=== PATIENT | male | born 1970 | race Caucasian/White ===

== ENCOUNTER 2019-07-15 19:08 | Inpatient (IN) | payer OTHER ==
[~2019-07-15] VITALS: Ht 170.2 cm; Wt 123.7 kg
[2019-07-15 19:30] LABS: Calcium, Ionized (POC) 1.06 mmol/L (1.10-1.46); Chloride (POC) 102 mmol/L (98-108); Creatinine (POC) 1.1 mg/dL (0.8-1.3); Glucose (ISTAT POC) 170 mg/dL (70-99); Hemoglobin (POC) 15.3 g/dL (13.5-17.5); Potassium (POC) 3.6 mmol/L (3.5-5.5); Sodium (POC) 136 mmol/L (135-148); Total CO2 (POC) 24 mmol/L (21-32)
[2019-07-15 19:33] LABS: BASOPHILS ABSOLUTE AUTO 0.04 K/mm3 (0.00-0.23); BASOPHILS PERCENT AUTO 0 % (0-2); EOSINOPHILS ABSOLUTE AUTO 0.14 K/mm3 (0.00-0.68); EOSINOPHILS PERCENT AUTO 1 % (0-6); Hematocrit 44.3 % (37.0-53.0); Hemoglobin 15.2 g/dL (13.5-17.5); IMMATURE GRAN ABSOLUTE AUTO 0.03 K/mm3 (0.00-0.10); IMMATURE GRAN PERCENT AUTO 0 % (0-1); LYMPHOCYTES ABSOLUTE AUTO 1.45 K/mm3 (0.84-5.20); LYMPHOCYTES PERCENT AUTO 13 % (21-46); MONOCYTES ABSOLUTE AUTO 0.72 K/mm3 (0.16-1.47); MONOCYTES PERCENT AUTO 7 % (4-13); Mean Corpuscular HGB 29.5 pg (26.0-34.0); Mean Corpuscular HGB Conc 34.3 g/dL (31.5-36.5); Mean Corpuscular Volume 86 fL (80-100); Mean Platelet Volume 9.2 fL (9.1-12.4); NEUTROPHILS ABSOLUTE AUTO 8.46 K/mm3 (1.96-9.15); NEUTROPHILS PERCENT AUTO 78 % (41-73); Platelet Count 240 K/mm3 (150-400); RDW Coefficient Variation 12.5 % (11.7-14.2); RDW Standard Deviation 38.9 fL (35.1-46.3); Red Blood Cell Count 5.16 M/mm3 (4.30-5.90); White Blood Cell Count 10.84 K/mm3 (4.00-11.30)
[2019-07-15] MEDS ORDERED: LISI5 PO (19:40)
[2019-07-15] MEDS ORDERED: METF500 PO (19:41)
[2019-07-15] MEDS ORDERED: HYDR10 (19:41)
[2019-07-15 19:48] LABS: International Normalized Ratio 1.05; Prothrombin Time Results 11.1 Sec (9.7-11.5)
[2019-07-15 19:56] LABS: Alanine Aminotransfer (ALT/SGP 137 U/L (12-78); Albumin, Blood 3.8 g/dL (3.4-5.0); Alk Phos 68 U/L (50-136); Anion Gap 9 mmol/L (6-16); Aspartate Aminotrans (AST/SGOT 126 U/L (12-37); Bilirubin, Total 1.1 mg/dL (0.1-1.0); Blood Urea Nitrogen 21 mg/dL (8-24); Bun/Creatinine Ratio 19.6 (12.0-20.0); CO2, Blood 23 mmol/L (21-32); Chloride, Blood 105 mmol/L (98-108); Creatinine, Blood 1.07 mg/dL (0.60-1.20); Glomerular Filtration Rate >60 (60-); Glucose, Blood 165 mg/dL (70-99); Potassium, Blood 3.6 mmol/L (3.5-5.5); Sodium, Blood 137 mmol/L (136-145); Total Protein, Blood 7.8 g/dL (6.4-8.2); Troponin I <0.015 ng/mL (0.000-0.040)
[2019-07-15] MEDS ORDERED: HYDCHL25 PO (23:14)
[2019-07-16 03:36] LABS: BASOPHILS ABSOLUTE AUTO 0.03 K/mm3 (0.00-0.23); BASOPHILS PERCENT AUTO 0 % (0-2); EOSINOPHILS ABSOLUTE AUTO 0.04 K/mm3 (0.00-0.68); EOSINOPHILS PERCENT AUTO 1 % (0-6); Hematocrit 42.3 % (37.0-53.0); Hemoglobin 14.3 g/dL (13.5-17.5); IMMATURE GRAN ABSOLUTE AUTO 0.02 K/mm3 (0.00-0.10); IMMATURE GRAN PERCENT AUTO 0 % (0-1); LYMPHOCYTES ABSOLUTE AUTO 0.96 K/mm3 (0.84-5.20); LYMPHOCYTES PERCENT AUTO 13 % (21-46); MONOCYTES ABSOLUTE AUTO 0.56 K/mm3 (0.16-1.47); MONOCYTES PERCENT AUTO 8 % (4-13); Mean Corpuscular HGB 30.2 pg (26.0-34.0); Mean Corpuscular HGB Conc 33.8 g/dL (31.5-36.5); Mean Corpuscular Volume 89 fL (80-100); Mean Platelet Volume 9.4 fL (9.1-12.4); NEUTROPHILS ABSOLUTE AUTO 5.88 K/mm3 (1.96-9.15); NEUTROPHILS PERCENT AUTO 79 % (41-73); Platelet Count 186 K/mm3 (150-400); RDW Coefficient Variation 12.6 % (11.7-14.2); RDW Standard Deviation 41.6 fL (35.1-46.3); Red Blood Cell Count 4.74 M/mm3 (4.30-5.90); White Blood Cell Count 7.49 K/mm3 (4.00-11.30)
[2019-07-16 03:54] LABS: Alanine Aminotransfer (ALT/SGP 189 U/L (12-78); Albumin, Blood 3.5 g/dL (3.4-5.0); Albumin/Globulin Ratio 0.9 (0.8-1.8); Alk Phos 71 U/L (50-136); Anion Gap 6 mmol/L (6-16); Aspartate Aminotrans (AST/SGOT 140 U/L (12-37); Bilirubin, Total 0.8 mg/dL (0.1-1.0); Blood Urea Nitrogen 19 mg/dL (8-24); Bun/Creatinine Ratio 17.9 (12.0-20.0); CO2, Blood 29 mmol/L (21-32); Calcium, Blood 8.3 mg/dL (8.5-10.1); Chloride, Blood 103 mmol/L (98-108); Creatinine, Blood 1.06 mg/dL (0.60-1.20); Globulin, Blood 4.1 g/dL (2.2-4.0); Glomerular Filtration Rate >60 (60-); Glucose, Blood 119 mg/dL (70-99); Potassium, Blood 4.1 mmol/L (3.5-5.5); Sodium, Blood 138 mmol/L (136-145); Total Protein, Blood 7.6 g/dL (6.4-8.2)
--- NOTE | 2019-07-16 05:12 | NUR ---
SHIFT SUMMARY PT NEW ED ADMIT THIS EVENING. COMPLAINING OF UPPER EPIGASTRIC PAIN THAT RADIATED INTO HIS BACK. PT ALSO HAVING SOME INTERMITTENT NAUSEA. NO EPISODES OF VOMITING SINCE ADMISSION. PT REPORTS THAT THROUGHOUT THE NIGHT THE FEELING OF TIGHTNESS IN HIS UPPER EPIGASTRIC HAS IMPROVED BUT THE PAIN REMAINS. MEDICATED X 2 W/ 2 MG IV DILAUDID, X 1 W/ 4 MG ZOFRAN, AND X 1 W/ 25 MG PHENERGAN. TELEMETRY ON AND READING SINUS RHYTHM IN THE 60'S THROUGHOUT THE NIGHT. PT AMBULATED WELL INDEPENDENTLY IN THE ROOM. DENIES SOB. DOES REPORT SOME RECENT HARD STOOL. AT BEDSIDE THROUGHOUT THE NIGHT. VITAL SIGNS STABLE. CPAP ON AT [facility]. WILL CONTINUE TO MONITOR.
--- NOTE | 2019-07-16 17:29 | NUR ---
SHIFT SUMMARY PT HAD FIRST PART OF STRESS TEST DONE THIS SHIFT. 2ND PART TO BE DONE TOMORROW AT [facility] PER NUCLEAR MED. PT CONTINUES TO COMPLAIN OF PAIN IN EPIGASTRIC AREA BUT REPORTS HE DOES NOT HAVE THE PRESSURE IN HIS BACK OR IN THE EPIGASTRIC AREA LIKE HE DID LAST NIGHT. PT ALSO REPORTS PAIN WORSENED WHEN TAKING A SHOWER. NO NAUSEA SINCE THIS AM. PT TOLERATING REGULAR FOOD. ZOFRAN ADMINISTERED BEFORE PAIN MEDICATION DUE TO PT REPORTS IT CAUSES HIM TO FEEL NAUSEOUS AFTER. IVF INFUSING WITHOUT DIFFICULTY. NO ACUTE CHANGES THIS SHIFT. PT UP INDEPENDENTLY IN ROOM. WILL CONTINUE TO MONITOR AND REPORT TO NOC RN. CALL LIGHT IN REACH.
--- NOTE | 2019-07-17 06:15 | NUR ---
SHIFT SUMMARY PT CONTINUES TO HAVE UPPER EPIGASTRIC PAIN THAT RADIATES TO HIS BACK. PT DOES REPORT THAT PAIN HAS IMPROVED SOME AND TIGHTNESS THAT PT HAD ON ADMISSION IS GONE. PT HAD SOME NAUSEA AT BETIME, MEDICATED W/ PHENERGAN AND PT SLEPT AND WHEN AWAKE DENIED ANY FURTHER NAUSEA THE REMAINDER OF THE NIGHT. ALSO MEDICATED W/ 1 MG DILAUDID X 1 FOR ABD PAIN. PT SLEPT MUCH BETTER THIS EVENING. HEADACHE REPORTED BOTH BEFORE BEDTIME AND WHEN WAKING THIS AM. MEDICATED X 2 W/ 650 MG TYLENOL. PT TO HAVE 2ND PART OF STRESS TEST TODAY. AND DOG AT BEDSIDE. VITAL SIGNS STABLE. TELEMETRY READING SR 89 THIS EVENING. NO ACUTE CHANGES THIS SHIFT.
--- NOTE | 2019-07-17 17:09 | NUR ---
PT ALERT AND ORIENTED THROUGHOUT THIS SHIFT. PT'S IN THE ROOM THROUGHOUT THIS SHIFT. PT NPO AFTER BREAKFAST IN PREPARATION FOR CARDIAC STRESS TEST. STRESS TEST PERFORMED AROUND [address] WRIGHT IN ROOM SHORTLY AFTER, ADVISING PT THAT CARDIAC CONSULT WAS INDICATED WITH STRESS TEST RESULTS. PT THANKED DR WRIGHT FOR BEING THOROUGH. DR WRIGHT ORDERED CARDIAC PROTECTIVE MEDICATIONS, INCLUDING ASPIRIN. DR WRIGHT VERIFIED PT'S ALERGY TO ASPIRIN WITH PT, CONFIRMING RASH THE REACTION. DR WRIGHT STATED THAT THE BENEFITS ARE GREATER THAN THE REACTION AND ORDERED PRN BENADRYL IN CASE OF REACTION. PT ENCOURAGED TO DRINK CAFFEINE AFTER STRESS TEST. PT STATES CONTINUED HEADACHE. PT MEDICATED WITH TYLENOL, WHICH MODERATELY HELPED THE HEADACHE. PT CURRENTLY RESTING IN ROOM WITH AT BEDSIDE.
--- NOTE | 2019-07-17 21:28 | NUR ---
Cardiology consult DR Waters who ordered Plavix 300 mg and heparin drip for positive cardiac stress test. Verified dose with pharmacy and administered 300 mg plavix and administered heparin bolus as directed and started heparin drip as directed by pharmacy. Verified heparin and administered with second RN Jamal. PT denies new chest pain same epigastic pain of 3 present. No reaction to ASA noted. NPO at midnight for cardiac cath tomorrow. at bedside. VSS
--- NOTE | 2019-07-18 04:57 | NUR ---
49 year old MAle admitted with epigastic pain and N V has cardiology consult with DR MINAYA who orders NPO staus at mifnight, plavix 300 mg po x 1 then 75 mg po daily and heparin gtt for abnormal cardiac stress test. PT has at bedside and calm cooperative. Continues with tele monitoring sinus nolan to NSR rate 50s to 70s. Mild pain of 3/10 reported upper epigastric. Full code status, has 5 adult Children. PT . Long haul truckdriver cooperative and calm. Has been resting on rounds. Continues on heparin drip per pharmacy management. Echo pending, continues NPO since midnight.
--- NOTE | 2019-07-18 10:08 | NUR ---
HANDOFF CALLED TO PCU HANDOFF REPORT CALLED TO PCU NURSE PIA. PCU NURSE HAD NO FURTHER QUESTIONS. PT'S SPOUSE GATHERED UP PERSONAL BELONGINGS. MEDICATIONS IN DRAWER TUBED TO PCU.
[2019-07-18] MEDS ORDERED: ASPI81CH PO (10:53)
[2019-07-18] MEDS ORDERED: Lipitor20 MG PO (10:53)
[2019-07-18] MEDS ORDERED: OMEPRAZOLE20 MG PO (10:54)
--- NOTE | 2019-07-18 10:55 | NUR ---
RECEIVED REPORT AND PT FROM POCKET [facility]ER WELL well as REport from 308 nurse. procedure tolerated well, oximeter on hand with band, dr into assess, limited driving for a while r/pain not heart
--- NOTE | 2019-07-18 11:59 | NUR ---
RELEASED 2, NO S/SX BLEEDING OR BRUISING NOTED AT SITE, TOLERATED WELL
--- NOTE | 2019-07-18 12:49 | NUR ---
NO S/SX OF BRUISING OR BLEEDING AT SITE, WARNED HERE FOR AN HOUR FOR FOLLOW UP CN HAS COMPLETED DC PW WILL REVIEW WITH PT AND FAMILY
--- NOTE | 2019-07-18 15:05 | NUR ---
reviewed dc orders and medication with pt and family, no bleeding or bruising noted at wrist site, a+o, able to walk with no assist to bathroom when IV and other incumberances removed, pw signed and placed in folder or chart, escorted to door by staff and family, reminded not to drive until dr has approved it, checked rm for personel belongings
== END 2019-07-18 14:15 | disposition home or self-care (01) | DRG 392 ==
LOC: ER 19:08 → MEDS 19:09 → PCU 07-18 10:02
PROVIDERS: Emergency Medicine; Nurse Practitioner Acute Care; ADMIT Internal Medicine
PROC: B2111ZZ Fluoroscopy of Multiple Coronary Arteries using Low Osmolar Contrast (ICD-10-PCS; principal; 2019-07-18)
PROC: 4A023N7 Measurement of Cardiac Sampling and Pressure, Left Heart, Percutaneous Approach (ICD-10-PCS; 2019-07-18)
PROC: B2151ZZ Fluoroscopy of Left Heart using Low Osmolar Contrast (ICD-10-PCS; 2019-07-18)
DX: R10.13 Epigastric pain (principal); I20.0 Unstable angina; I50.22 Chronic systolic (congestive) heart failure; K50.10 Crohn's disease of large intestine without complications; Z68.41 Body mass index [BMI] 40.0-44.9, adult; I11.0 Hypertensive heart disease with heart failure; E11.9 Type 2 diabetes mellitus without complications; Z87.891 Personal history of nicotine dependence; Z79.84 Long term (current) use of oral hypoglycemic drugs; E66.01 Morbid (severe) obesity due to excess calories; E83.51 Hypocalcemia
CPT/HCPCS: 36415; 71275; 74175; 76705; 76937; 78452; 80047; 80053; 82947; 83690; 83880; 84484; 85014; 85025; 85347; 85610; 85730; 93005; 93010; 93017; 93306; 93458; 94660; 94762; 96374-59; 96375-59; 96376-59; 99152; 99153; 99285-25; A9270; A9500; C1769; C1894; C9113; J0610; J0706; J1170; J1644; J2250; J2405; J2550; J2785; J3010; J3480; J7030; Q0163; Q9967